=== PATIENT | female | born 1985 | race African-American/Black ===

== ENCOUNTER 2018-12-27 19:53 | Emergency (ER) | payer OTHER ==
[2018-12-27] MEDS ORDERED: Ibuprofen 200 MG TAB ONE (20:45)
--- NOTE | 2018-12-27 20:47 | RAD ---
TWO VIEWS CHEST: 12/27/18 COMPARISON: 06/09/18. HISTORY: Cough and fever. FINDINGS: Normal cardiac silhouette. The pulmonary vessels and hilum are normal. Costophrenic angles are clear. No mass. No consolidation. No pneumothorax or osseous abnormalities. IMPRESSION: No acute cardiopulmonary process. POS: PPP
== END 2018-12-27 21:06 | disposition home or self-care (01) ==
LOC: SCSER 19:53
DX: J10.1 Influenza due to other identified influenza virus with other respiratory manifestations (principal); Z79.891 Long term (current) use of opiate analgesic
CPT/HCPCS: 71046; 87804

== ENCOUNTER 2018-12-31 17:44 | Emergency (ER) | payer OTHER ==
[2018-12-31] MEDS ORDERED: Metoclopramide HCl 10 MG/2 ML VIAL ONE (18:49)
== END 2018-12-31 21:07 | disposition home or self-care (01) ==
LOC: SCSER 17:44
DX: E86.0 Dehydration (principal)
CPT/HCPCS: 96365; 96366; J2765